=== PATIENT | male | born 1970 | race Caucasian/White ===

== ENCOUNTER 2025-05-10 12:08 | Emergency (ER) | payer MEDICAID ==
[~2025-05-10] VITALS: Ht 185.4 cm; Wt 100.0 kg
[2025-05-10 12:37] LABS: MEAN PLATELET VOLUME 6.5 FL (7.4-10.4); RED CELL DISTRIBUTION WIDTH 15.0 % (11.5-14.5)
[2025-05-10] MEDS: ringers solution, lactated 1000ml IV soln IV ONE (12:45)
[2025-05-10 13:27] LABS: CREATININE 0.70 MG/DL (0.60-1.10); TOTAL CARBON DIOXIDE 25.3 MMOL/L (24-32); eCRCL 138 ML/MIN; eGFR > 90 ML/MIN
[2025-05-10 13:41] LABS: LEUKOCYTE ESTERASE ,URINE NEGATIVE (Neg); NITRITES, URINE NEGATIVE (Neg); OCCULT BLOOD,URINE NEGATIVE (Neg)
[2025-05-10 13:43] LABS: ETHANOL 330 MG/DL (<10)
[2025-05-10 13:47] LABS: UA COLLECTION TYPE VOIDED
[2025-05-10 13:54] LABS: URINE AMPHETAMINE SCREEN NEGATIVE (Neg); URINE BARBITUATE SCREEN NEGATIVE (Neg); URINE BENZODIAZEPINES SCREEN NEGATIVE (Neg); URINE CANNABINOID SCREEN NEGATIVE (Neg); URINE COCAINE SCREEN NEGATIVE (Neg); URINE METHADONE SCREEN NEGATIVE (Neg); URINE OPIATE SCREEN NEGATIVE (Neg); URINE PHENCYCLIDINE SCREEN NEGATIVE (Neg)
--- NOTE | 2025-05-10 14:14 | Physician Documentation ---
History of Present Illness ~ Chief Complaint: ETOH Withdrawl Stated Complaint: ETOH WITHDRAWLS Time Seen by MD: 12:21 Source: patient Mode of Arrival: EMS Exam Limitations: no limitations HPI Chief Complaint: Wants detox for rehab Caveat: Alcohol intoxication Independent Historians: None History of Present Illness: Patient is a 54-year-old man who comes in here intoxicated. He was referred here [facility] rescue rehab stating that he needed medical clearance. Patient has slurred speech and states that he drank at least two qt of alcohol earlier this morning. Patient denies any symptoms acute illness at this time. Review of systems: All systems were reviewed and are negative except for what is indicated in the history of present illness. Past Medical History: Alcoholism Past Surgical History: None Social History: Heavy daily alcohol use, tobacco use, denies other drug use Medications: Reviewed as documented Nursing Notes Allergies: Reviewed as documented in Nursing Notes Tetanus within 5 years?: No Medication Reconciliation Allergies: Coded Allergies: No Known Allergies (Unverified , 05/10/25) Review of Systems All Other Systems at this time: Reviewed and Negative ROS Patient denies any other acute symptoms other than above. All other systems are negative Physical Exam Vital Signs: RN Vital Signs have been reviewed: Yes, Temperature: 98.7, Source: Oral, Heart Rate: 74, Respiratory Rate: 19, BP: 136/79, Pulse Oximetry: 92, Weight: 100.000 Oxygen Flow Rate: 2.0 Pulse Oximetry Reflects: adequate oxygenation Physical Exam General Appearance: No distress HEENT: Normal OP, moist oral mucosa, PERRL, EOMI Neck: supple, normal ROM, trachea midline Pulmonary: No respiratory distress, CTA, BS equal Cardiac: RRR, no murmur, rub or gallop, GI: nondistended, soft, nontender, normal bowel sounds, no guarding, no rebound Extremities: normal ROM, no swelling, non-tender Skin: intact, dry, warm, no rashes Neuro: AAOx3, slurred speech, no focal motor weakness Psych: normal affect, good eye contact, no apparent hallucination, denies suicidal ideations Progress Results/Orders Results/Orders Completed Orders - ROSALINO REESE MD Ringers Solution, Lacted (Lactated Ringe (05/10/25 12:25) Medications Received in ER Medications (Trade) Dose Ordered Sig/Chet Route PRN Reason Start Time Stop Time Status Last Admin Dose Admin (lactated ringers solution) 1,000 ml ONCE ONCE IV 05/10/25 12:25 05/10/25 12:26 DC 05/10/25 12:45 1,000 ML Vital Signs 05/10/25 05/10/25 05/10/25 05/10/25 12:12 12:23 12:48 13:10 Temp 98.7 98.7 98.7 Pulse 83 75 74 Resp 18 19 19 B/P (MAP) 146/90 140/85 (103) 136/79 (98) Pulse Ox 93 94 92 O2 Flow Rate 2.0 2.0 05/10/25 14:29 Temp 98.7 Pulse 82 Resp 18 B/P (MAP) 136/86 (103) Pulse Ox 94 O2 Flow Rate 2.0 Laboratory Tests Test 05/10/25 12:27 05/10/25 13:25 White Blood Count 7.5 Red Blood Count 5.04 Hemoglobin 14.7 Hematocrit 44.2 Mean Corpuscular Volume 87.7 Mean Corpuscular Hemoglobin 29.1 Mean Corpuscular Hemoglobin Concent 33.2 Red Cell Distribution Width 15.0 H Platelet Count 332 Mean Platelet Volume 6.5 L Neutrophils (%) (Auto) 60.4 Lymphocytes (%) (Auto) 31.3 Monocytes (%) (Auto) 6.5 Eosinophils (%) (Auto) 1.2 Basophils (%) (Auto) 0.6 Neutrophils # (Auto) 4.5 Lymphocytes # (Auto) 2.4 Monocytes # (Auto) 0.5 Eosinophils # (Auto) 0.1 Basophils # (Auto) 0.0 CBC Comment Sodium Level 139 Potassium Level 3.3 L Chloride Level 100 Carbon Dioxide Level 25.3 Anion Gap 14 Blood Urea Nitrogen 7 Creatinine 0.70 Estimated GFR/1.73 m2 > 90 BUN/Creatinine Ratio 10.0 Glucose Level 100 Calcium Level 8.2 L Magnesium Level 2.3 Total Bilirubin 0.4 Aspartate Amino Transf (AST/SGOT) 29 Alanine Aminotransferase (ALT/SGPT) 25 Alkaline Phosphatase 139 H Ammonia < 10 L Troponin I High Sensitivity 10 Total Protein 6.8 Albumin 3.2 L Globulin 3.6 Albumin/Globulin Ratio 0.9 L Lipase 224 H Chemistry Comments Ethyl Alcohol Level 330 H Urine Specimen Description Voided Urine Color Yellow Urine Clarity Clear Urine pH 6.0 Urine Specific [place] <=1.005 Urine Protein Negative Urine Glucose (UA) Negative Urine Ketones Negative Urine Occult Blood Negative Urine Nitrite Negative Urine Bilirubin Negative Urine Urobilinogen 0.2 Urine Leukocyte Esterase Negative Urine Culture Indicated Not ind Volume Urine Centrifuged 10 ml Urine Comment Urine Opiates Screen Negative Urine Methadone Screen Negative Urine Fentanyl Screen Negative Urine Barbiturates Screen Negative Urine Phencyclidine Screen Negative Urine Amphetamines Screen Negative Urine Benzodiazepines Screen Negative Urine Cocaine Screen Negative Urine Cannabinoids Screen Negative Drug Screen Comment Medical Decision Making Additional info obtained from: old records Findings Differential diagnosis includes but is not limited to: Alcohol intoxication Laboratory data independent interpretation: CBC: Unremarkable CMP: Mild hypokalemia potassium 3.3 otherwise unremarkable Toxicology: Blood alcohol 330, negative drug screen Lipase: 224 Emergency department course/medical decision-making: Patient presents with a request for medical clearance for outpatient rehab. However the patient is very intoxicated. Patient will not be able to be medically cleared. Patient is given 1 L of normal saline. When patient becomes clinically sober a he may be medically cleared for discharge. 3:35 p.m.: Patient is re-evaluated. Patient is awake alert and his speech has improved. Patient no longer has slurred speech. Patient is clinically sober. Patient is asking to be admitted for detox. I instructed him that he is not in alcohol withdrawal at this time but I could give him medications to help him prevent alcohol withdrawal and he could go to rehab. Patient states that he wants to stop drinking. When I informed him that he does not meet admission criteria he said that he was going to kill himself. Patient is clearly being manipulative and has already shown that he is goal oriented. Patient isn't going to be placed on a 1799. Patient is stable for discharge. Departure Time of Disposition: 14:14 Impression: Primary Impression: Alcoholic intoxication Qualified Codes: F10.929 - Alcohol use, unspecified with intoxication, unspecified Condition: Improved Discharge Instructions: Alcohol Intoxication Additional Instructions: YOU ARE MEDICALLY STABLE AND CLEARED FOR DISCHARGE. YOU MAY GO STRAIGHT TO [facility]. Education Educated: Patient Educated regarding: diagnosis, treatment, need for follow up Signature Scribe Signature: No scribe Attestation: No scribe ROSALINO REESE MD May 10, 2025 14:14
[2025-05-10 16:02] VITALS: BP 131/64; PULSE 78; RESP 16; TEMP 98.7; O2SAT 98
== END 2025-05-10 16:00 | disposition home or self-care (01) ==
LOC: ER 12:09
DX: F10.129 Alcohol abuse with intoxication, unspecified (principal); Y90.8 Blood alcohol level of 240 mg/100 ml or more
CPT/HCPCS: 36415; 80053; 80305; 80320; 81003; 82140; 83690; 83735; 84484; 85025; 96360; 99285; J7120; A4615

== ENCOUNTER 2025-06-06 04:14 | Emergency (ER) | payer MEDICAID ==
[~2025-06-06] VITALS: Ht 182.9 cm; Wt 95.5 kg
[2025-06-06 04:17] VITALS: BP 144/99; PULSE 88; RESP 16; TEMP 98.7; O2SAT 93
--- NOTE | 2025-06-06 04:26 | Physician Documentation ---
History of Present Illness ~ General Chief Complaint: See Chief Complaint Stated Complaint: MULTIPLE COMPLAINTS M BLS Time Seen by MD: 04:25 History of Present Illness Initial Comments Patient presents to the emergency room requesting rehab. He states he has been drinking heavy for over 20 years. He was seen here few weeks ago requesting clearance for rehab facility. He states he went to the rehab facility for a few days and then left. He is asking if I could admit him so he can go through this . Last drink last night. Patient also endorses amphetamine abuse Medication Reconciliation Allergies: Coded Allergies: No Known Allergies (Unverified , 05/10/25) Review of Systems ROS All review of systems negative except as per HPI Physical Exam Physical Exam Vital Signs: Temperature: 98.7, Source: Oral, Heart Rate: 88, Respiratory Rate: 16, BP: 144/99, Pulse Oximetry: 93, Weight: 95.450 Physical Exam General: Patient is awake, alert, oriented x4 in no acute distress. No tremors Head: Normocephalic and atraumatic. Eyes: Conjunctival normal. EOMI. PERRL. ENT: Mucous membranes moist. Neck: Supple, trachea is midline. Chest: Clear to auscultation bilaterally without rales, rhonchi, or wheezes. There is no accessory muscle use or retractions. Cardiac: RRR without murmurs, gallops, or rubs. Abd: Soft, nondistended, nontender, with normoactive bowel sounds. No guarding, rebound, or rigidity. Progress Results/Orders Results/Orders Completed Orders - EVENS PEREZ MD Electrocardiogram (06/06/25 04:26) Vital Signs 06/06/25 04:17 Temp 98.7 Pulse 88 Resp 16 B/P (MAP) 144/99 Pulse Ox 93 EKG/XRAY/CT/US/VASC/MRI EKG : Additional Comment EKG interpreted by myself shows time of 0424, rate 84, sinus rhythm, borderline right axis deviation, no ST changes Medical Decision Making Findings Patient presents to the emergency room to be admitted for rehab. I explained to him that that has not what our facility is for and that I am an emergency physician and I treat emergencies. I explained to him that has not in active withdrawal and that has very little I can do to help him aside from giving him resources. He is vitals are stable and there was no tremors and he had not feel he requires emergent labs or imaging. Departure Disposition: HOME / SELF CARE / HOMELESS Impression: Primary Impression: Alcohol abuse Condition: Stable Discharge Instructions: Alcohol Abuse and Dependence Information, Adult Referrals: NO PRIMARY CARE PROVIDER (PCP) Signature Scribe Signature: No scribe Attestation: The note accurately reflects work and decisions made by me.Evens Perez MD 06/06/25 04:34 EVENS PEREZ MD Jun 06, 2025 04:26
--- NOTE | 2025-06-06 04:27 | ELECTROCARDIOGRAPH REPORT ---
[facility] Test Date: 2025-06-06 Test Time: 04:24:14 Pat Name: BRENDA STEWARD Department: EMERGENCY ROOM Room: Gender: M [employer] Operator: PM : 1970 Requested By: JORGE ALBERTO KNOX Order Number: [id number] Reading MD: Measurements Intervals [place] Rate: 84 P: 78 ID: [id number] QRS: 99 QRSD: 110 T: 80 QT: 391 QTc: 463 Interpretive Statements Sinus rhythm Borderline right axis deviation Please click the below link to view image of tracing.
[2025-06-07] MEDS ORDERED: NO HOME MEDS (00:16)
== END 2025-06-06 04:58 | disposition home or self-care (01) ==
LOC: ER 04:15
DX: F10.10 Alcohol abuse, uncomplicated (principal); F15.10 Other stimulant abuse, uncomplicated; Y90.9 Presence of alcohol in blood, level not specified
CPT/HCPCS: 93005; 99283

== ENCOUNTER 2025-06-06 22:23 | Emergency (ER) | payer MEDICAID ==
[~2025-06-06] VITALS: Ht 185.4 cm; Wt 210.6 kg
[2025-06-06 23:23] LABS: MEAN PLATELET VOLUME 6.6 FL (7.4-10.4); RED CELL DISTRIBUTION WIDTH 16.4 % (11.5-14.5)
[2025-06-06] MEDS: OLANZapine **IM** 10 mg inj. IM STA (23:32)
[2025-06-06 23:47] LABS: CREATININE 0.85 MG/DL (0.60-1.10); ETHANOL 132 MG/DL (<10); TOTAL CARBON DIOXIDE 23.7 MMOL/L (24-32); eCRCL 114 ML/MIN; eGFR > 90 ML/MIN
--- NOTE | 2025-06-07 | Physician Documentation ---
History of Present Illness ~ Chief Complaint: ETOH Withdrawl Stated Complaint: ALCOHOL WITH DRAWAL Time Seen by MD: 23:27 HPI Patient presents to the emergency room for evaluation of suicidal ideation. He was seen here last night by himself trying to go into rehab. He has continued to drank since he was discharged and now feels suicidal. Tetanus within 5 years?: No Medication Reconciliation Allergies: Coded Allergies: No Known Allergies (Unverified , 05/10/25) Review of Systems ROS All review of systems negative except as per HPI Physical Exam Vital Signs: Temperature: 97.5, Source: Oral, Heart Rate: 123, Respiratory Rate: 16, BP: 165/98, Pulse Oximetry: 96, Weight: 210.600 Oxygen Flow Rate: 0 Physical Exam General: Patient is sleeping, easily arousable in no acute distress Head: Normocephalic and atraumatic. Eyes: Conjunctival normal. EOMI. PERRL. ENT: Mucous membranes moist. Neck: Supple, trachea is midline. Chest: Clear to auscultation bilaterally without rales, rhonchi, or wheezes. There is no accessory muscle use or retractions. Cardiac: Cardiac and regular without murmurs, gallops, or rubs. Psych: Cooperative, poor eye contact, suicidal Progress Results/Orders Results/Orders Medications Received in ER Medications (Trade) Dose Ordered Sig/Chet Route PRN Reason Start Time Stop Time Status Last Admin Dose Admin (ZyPREXA I.M. IM ONLY) 10 mg ONCE STAT IM 06/06/25 22:59 06/06/25 23:08 DC 06/06/25 23:32 10 MG Vital Signs 06/06/25 22:37 Temp 97.5 Pulse 123 Resp 16 B/P (MAP) 165/98 Pulse Ox 96 O2 Flow Rate 0 Laboratory Tests Test 06/06/25 23:16 White Blood Count 7.7 Red Blood Count 5.02 Hemoglobin 14.6 Hematocrit 43.2 Mean Corpuscular Volume 86.0 Mean Corpuscular Hemoglobin 29.1 Mean Corpuscular Hemoglobin Concent 33.8 Red Cell Distribution Width 16.4 H Platelet Count 363 Mean Platelet Volume 6.6 L Neutrophils (%) (Auto) 67.0 Lymphocytes (%) (Auto) 22.2 Monocytes (%) (Auto) 8.9 Eosinophils (%) (Auto) 0.6 Basophils (%) (Auto) 1.3 H Neutrophils # (Auto) 5.1 Lymphocytes # (Auto) 1.7 Monocytes # (Auto) 0.7 Eosinophils # (Auto) 0.0 Basophils # (Auto) 0.1 CBC Comment Sodium Level 141 Potassium Level 3.5 Chloride Level 100 Carbon Dioxide Level 23.7 L Anion Gap 17 H Blood Urea Nitrogen 14 Creatinine 0.85 Estimated GFR/1.73 m2 > 90 BUN/Creatinine Ratio 16.5 Glucose Level 80 Calcium Level 8.8 Magnesium Level 1.6 Total Bilirubin 0.7 Aspartate Amino Transf (AST/SGOT) 55 H Alanine Aminotransferase (ALT/SGPT) 65 Alkaline Phosphatase 118 H Total Protein 7.3 Albumin 3.8 Globulin 3.5 Albumin/Globulin Ratio 1.1 Lipase 64 Chemistry Comments Ethyl Alcohol Level 132 H Medical Decision Making Findings Patient presents to the emergency room complaining of suicidal ideation and alcoholism. Labs reviewed and there was no evidence of major pathologic derangements. 1799 placed. Patient is medically cleared for mental health evaluation. Patient is sleeping comfortably with no tremors and he had not feel he was suffering from alcohol withdrawal. Noted ethanol intoxication. Departure Disposition: 30 STILL A PATIENT Impression: Primary Impression: Suicidal ideation Condition: Guarded Referrals: NO PRIMARY CARE PROVIDER (PCP) Signature Scribe Signature: No scribe Attestation: The note accurately reflects work and decisions made by me.Evens Perez MD 06/07/25 00:04 EVENS PEREZ MD Jun 06, 2025 23:59
[2025-06-07] MEDS ORDERED: NO HOME MEDS (00:16)
[2025-06-07 02:06] LABS: LEUKOCYTE ESTERASE ,URINE TRACE (Neg); NITRITES, URINE NEGATIVE (Neg); OCCULT BLOOD,URINE TRACE-INTACT (Neg)
[2025-06-07 02:08] LABS: UA COLLECTION TYPE CLN CATCH MIDSTREAM
[2025-06-07 02:11] LABS: MUCUS STRANDS FEW /LPF (Neg); SQUAMOUS EPITHELIAL CELL,UR FEW /LPF (FEW)
[2025-06-07 02:19] LABS: URINE AMPHETAMINE SCREEN NEGATIVE (Neg); URINE BARBITUATE SCREEN NEGATIVE (Neg); URINE BENZODIAZEPINES SCREEN POSITIVE (Neg); URINE CANNABINOID SCREEN NEGATIVE (Neg); URINE COCAINE SCREEN NEGATIVE (Neg); URINE METHADONE SCREEN NEGATIVE (Neg); URINE OPIATE SCREEN NEGATIVE (Neg); URINE PHENCYCLIDINE SCREEN NEGATIVE (Neg)
[2025-06-07] MEDS ORDERED: ibuprofen tablet 400 MG TABLET PO PRN (14:45)
[2025-06-07 17:05] VITALS: BP 167/16; PULSE 75; RESP 16; TEMP 97.7; O2SAT 98
== END 2025-06-07 16:05 ==
LOC: ER 22:24
DX: R45.851 Suicidal ideations (principal); F10.939 Alcohol use, unspecified with withdrawal, unspecified; Z20.822 Contact with and (suspected) exposure to COVID-19; Z79.899 Other long term (current) drug therapy; Y90.9 Presence of alcohol in blood, level not specified
CPT/HCPCS: 36415; 80053; 80305; 80320; 81001; 83690; 83735; 84443; 85025; 87088; 87811; 96372; 99285; J3490